=== PATIENT | female | born 1990 ===

== ENCOUNTER 2018-11-02 20:38 | Emergency (ER) | payer MEDICAID, OTHER, SELFPAY ==
[2018-11-02 20:38] VITALS: BMI 31.8
[2018-11-02 21:03] VITALS: BP 129/66; PULSE 99; RESP 18; TEMP 100.6; O2SAT 97
--- NOTE | 2018-11-02 21:19 | ED PDOC ---
History of Present Illness History of Present Illness: 28 year old female with a past medical history of gestational diabetes who is presenting to the ED for evaluation of 1 day of body aches, cough, fever and sore throat. Patient states that she took Advil at 3 pm with minimal improvement. Additionally, low grade fever noted on triage. Patient offers no other medical complaints at this time. PMD: none provided HPI: Influenza Time Seen by Provider: 11/02/18 21:15 Chief Complaint: Cough, Cold, Congestion Chief Complaint (Provider): Cough, Cold, Congestion History Per: Patient Exam Limitations: no limitations Onset/Duration Of Symptoms: Days (x1) Symptoms include: fever, bodyaches, sore throat, cough Past Medical History Reviewed: Historical Data, Nursing Documentation, Vital Signs Vital Signs: Last Vital Signs Temp 100.6 F H 11/02/18 21:02 Pulse 99 H 11/02/18 21:02 Resp 18 11/02/18 21:02 BP 129/66 11/02/18 21:02 Pulse Ox 97 11/02/18 21:02 - Medical History PMH: Asthma Denies: Chronic Kidney Disease - Surgical History Surgical History: - Family History Family History: States: Unknown Family Hx - Social History Current smoker - smoking cessation education provided: No Alcohol: None Drugs: Denies - Home Medications Home Medications: Ambulatory Orders Medication Instructions Recorded Ibuprofen [Motrin Tab] 600 mg PO Q4H PRN #30 tab 07/19/16 oxyCODONE/Acetaminophen [Percocet 1 tab PO Q4 PRN #30 tab 07/19/16 5/325 mg Tab] Acetaminophen [Acetaminophen Extra 2 tab PO Q6 PRN #24 tablet 11/02/18 Strength] Albuterol HFA [Ventolin HFA 90 2 puff IH [id number] PRN #1 inh 11/02/18 mcg/actuation (8 g)] Ibuprofen [Motrin] 600 mg PO Q8 PRN #21 tab 11/02/18 Oseltamivir Cap [Tamiflu] 75 mg PO BID #9 cap 11/02/18 Promethazine/Codeine 5 ml PO Q12 PRN #100 ml 11/02/18 [Codeine/Promethazine 10 MG/5 Ml-6.25 MG/5 Ml] - Allergies Allergies/Adverse Reactions: Allergies Allergy/AdvReac Type Severity Reaction Status Date / Time No Known Allergies Allergy Verified 05/31/15 07:04 Review of Systems ROS Statement: Except As Marked, All Systems Reviewed And Found Negative Constitutional: Positive for: Fever, Other (body aches ) ENT: Positive for: Throat Pain Respiratory: Positive for: Cough Physical Exam - Reviewed Nursing Documentation Reviewed: Yes Vital Signs Reviewed: Yes - Physical Exam Appears: Positive for: Well, Non-toxic, No Acute Distress Head Exam: Positive for: ATRAUMATIC, NORMAL INSPECTION, NORMOCEPHALIC Skin: Positive for: Normal Color, Warm, DRY Eye Exam: Positive for: EOMI, Normal appearance, PERRL ENT: Positive for: Normal ENT Inspection Neck: Positive for: Normal, Painless ROM Cardiovascular/Chest: Positive for: Regular Rate, Rhythm. Negative for: Murmur Respiratory: Positive for: Normal Breath Sounds. Negative for: Respiratory Distress Extremity: Positive for: Normal ROM Neurologic/Psych: Positive for: Alert, Oriented. Negative for: Motor/Sensory Deficits Medical Decision Making Medical Decision Making: Time: 21:15 Plan: --Tamiflu 75 mg PO --Tylenol 975 mg PO Scribe Attestation: Documented by, Subha Man acting as a scribe for Mary Jane Stock PA-C. Provider Scribe Attestation: All medical record entries made by the Scribe were at my direction and personally dictated by me. I have reviewed the chart and agree that the record accurately reflects my personal performance of the history, physical exam, medical decision making, and the department course for this patient. I have also personally directed, reviewed, and agree with the discharge instructions and disposition. - ECG O2 Sat by Pulse Oximetry: 97 (RA) Pulse Ox Interpretation: Normal Disposition - Clinical Impression Clinical Impression: Influenza - Patient ED Disposition Is Patient to be Admitted: No - Disposition Referrals: [facility] [Outside] Disposition: Routine/Home Disposition Time: 21:26 Condition: FAIR Prescriptions: Albuterol HFA [Ventolin HFA 90 mcg/actuation (8 g)] 2 puff IH [id number] PRN #1 inh PRN Reason: Cough Acetaminophen [Acetaminophen Extra Strength] 2 tab PO Q6 PRN #24 tablet PRN Reason: Pain, Moderate (4-7) Ibuprofen [Motrin] 600 mg PO Q8 PRN #21 tab PRN Reason: Pain, Moderate (4-7) Oseltamivir Cap [Tamiflu] 75 mg PO BID #9 cap Promethazine/Codeine [Codeine/Promethazine 10 MG/5 Ml-6.25 MG/5 Ml] 5 ml PO Q12 PRN #100 ml PRN Reason: Cough Instructions: Flu, Adult (DC) Forms: [facility] ED School/Work Excuse Print Language: [place]
== END 2018-11-02 22:05 | disposition home or self-care (01) ==
LOC: H.ER 20:38
DX: J11.1 Influenza due to unidentified influenza virus with other respiratory manifestations (principal)